=== PATIENT | female | born 1975 | race Caucasian/White ===

== ENCOUNTER 2023-10-26 12:25 | Emergency (ER) | payer OTHER, BC, SELFPAY ==
[2023-10-26 12:50] VITALS: BP 220/100; PULSE 93; RESP 20; TEMP 36.4; O2SAT 98; BMI 47.3
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
[2023-10-26] MEDS: ORPHENADRINE 60 MG/ 2 ML VIAL IM (13:47)
[2023-10-26] MEDS: HYDROCODONE/ACET 5-325 MG TABLET 1 TAB PO (13:47)
[2023-10-26 13:54] VITALS: BP 220/110
[2023-10-26 14:14] VITALS: BP 220/110
[2023-10-26] MEDS: LISINOPRIL 10 MG TABLET 20 MG PO (14:14)
[2023-10-26 14:43] VITALS: BP 184/94; PULSE 94; RESP 18
== END 2023-10-26 14:45 | disposition home or self-care (01) ==
PROVIDERS: Emergency Provider Emergency Medicine; PCP Student in an Organized Health Care Education/Training Program
DX: S13.9XXA Sprain of joints and ligaments of unspecified parts of neck, initial encounter (principal); M54.9 Dorsalgia, unspecified; I10 Essential (primary) hypertension; V47.6XXA Car passenger injured in collision with fixed or stationary object in traffic accident, initial encounter; Z79.899 Other long term (current) drug therapy
CPT/HCPCS: 70450; 72125; 72128; 72131; 96372; 99285; J2360

== ENCOUNTER 2025-01-02 18:08 | Emergency (ER) | payer BC, SELFPAY ==
--- OUTSIDE RECORDS SUMMARY | 2025-01-02 18:25 | XMS_ITS | CCD ---
Author Organization [facility] Care Team Providers Care Retail Wireless Sales Representative Name Role Phone Kevin Echeverria Unavailable Kings Lopez Unavailable MIGUEL ECHEVERRIA Primary Care Unavailable NATALY FISHER Attending Unavailable NATALY FISHER Admitting Unavailable KEVIN ECHEVERRIA Primary Care Physician Hai Victoria. Attending Unavailable EDUARDO ORTEGA Attending Unavailable EDUARDO ORTEGA Referring Unavailable EDUARDO ORTEGA Referring Unavailable DO Kevin Echeverria Primary Care Provider MD Tay Deshpande II Attending Provider [phone] Tay Deshpande II Attending Tay Murdock II Admitting Kevin Suarez Primary Care Unavailable Allergies Allergy Classification Reported Allergen(s) Allergy Type Date of Onset Reaction(s) Facility (20 sources) Penicillins Drug allergy seizure [facility] Other (1 source) Penicillins Drug allergy (disorder) 3 [facility] Repository (5 sources) Substance with penicillin structure and antibacterial mechanism of action (substance) Drug allergy seizure [facility] Other (2 sources) Penicillin; Translations: [penicillin] Drug Allergy Seizure [facility] (1 source) No Known Medication Allergies; Translations: [No Known Medication Allergies] Propensity to adverse reactions (disorder) [facility] Repository (1 source) Penicillins Drug allergy (disorder) 4 [facility] Repository Medications Current Medications Medication Drug Class(es) Dates Sig (Normalized) Sig (Original) [id number] 200 actuat albuterol 0.09 mg/actuat metered dose inhaler (20 sources) beta2-Adrenergic Agonist Start: 05-02-2024 End: 05-02-2024 take 1 puff(s) by inhalation every four hours Albuterol Sulfate (Ventolin Hfa) 90 mcg/actuation HFA aerosol inhaler Active 2 PUFF INHALATION Every 4 hours 8.5 30 May 02, 2024 11:49am Start: 11-03-2023 End: 05-02-2024 take 2 puff(s) by inhalation every four hours as needed Albuterol Sulfate (Ventolin Hfa) 90 mcg/actuation HFA aerosol inhaler Discontinued 2 PUFF INHALATION Every 4 hours November 03, 2023 1:00am May 02, 2024 11:49am Free[employer]Si puffs as needed Inhalation every 4 hrs; Note: Source Status: Taking; Refills: 5; Provider: Juwan Elaine take 2 puff(s) by in halation every four hours as needed Ventolin HFA 108 (90 Base) MCG/ACT 2 puffs as needed Inhalation every 4 hrs for 30 day(s) Active 120 actuat albuterol 0.1 mg/actuat / ipratropium bromide 0.02 mg/actuat inhalation spray (20 sources) Anticholinergic, beta2-Adrenergic Agonist Start: 11-03-2023 End: 05-02-2024 take 20-100 ug by inhalation every six hours Ipratropium-Albuterol (Combivent Respimat) 20-100 mcg/actuation mist Active 1 PUFF INHALATION Every 6 hours 4 May 02, 2024 11:48am Start: 08-24-2018 take 20-100 ug by in halation four times daily as needed Combivent Respimat 20-100 MCG/ACT 1 puff Inhalation Four times a day PRN for 30 day(s) Aug, Active take 20-100 ug by in halation every six hours as needed Combivent Respimat 20-100 MCG/ACT 1 puff as needed Inhalation every 6 hrs Active azithromycin 250 mg oral tablet (7 sources) Macrolide Antimicrobial Start: 06-22-2017 Zithro max Z-Nitin 250 MG 2 tablets on the first day, then 1 tablet daily for 4 days Orally Once a day for 5 day(s) Jun, Active diclofenac sodium 0.01 mg/mg topical gel (20 sources) Nonsteroidal Anti-inflammatory Drug Start: 07-21-2024 Diclofenac Sodium Active 2 GM TOPICAL as directed 10 20July 21, 2024 12:00am Start: 03-19-2022 Diclofenac Sod ium 1 % apply 1-2 grams to left elbow Externally Twice a day for 30 days Feb, Active Start: 08-24-2018 take 1 tablet by rishi th twice daily at mealtime as needed Voltaren 75 MG 1 tablet with food or milk Orally Twice a day/PRN for 30 day(s) Aug, Active [id number] 0.3 ml EPINEPHrine 1 mg/ml auto-injector (7 sources) alpha-Adrenergic Agonist, beta-Adrenergic Agonist, Catecholamine Start: 11-03-2023 Epinephrine Activ e 0.3 MG IM .prn for bee sting November 03, 2023 1:00am Start: 04-29-2023 EpiPen 2-Nitin 0 .3 MG/0.3ML as directed Injection at bee sting for 14 days Apr, Active escitalopram 10 mg oral tablet (20 sources) Serotonin Reuptake Inhibitor Start: 05-16-2024 take 1 tablet by mouth once daily Escitalopram Oxalate Active 0 .ROUTE .COMPLEX May 16, 2024 10:45am TAKE 1 TABLET BY MOUTH EVERY DAY Start: 05-02-2024 End: 05-16-2024 take 10 mg by mouth once daily Escitalopram Oxalate Di scontinued 10 MG PO Daily May 02, 2024 12:00am May 16, 2024 10:45am Start: 10-17-2021 End: 05-02-2024 take 5 mg by mouth once daily Escitalopram Oxalate Dis continued 5 MG PO Daily May 02, 2024 10:19am May 02, 2024 11:48am fluticasone propionate 0.05 mg/actuat metered dose nasal spray (15 sources) Corticosteroid Start: 10-17-2021 take 2 spray(s) nasal route once daily Fluticasone Propionate 50 MCG/ACT 2 spray in each nostril Nasally Once a day for 90 days Sep, Active methocarbamol 750 mg oral tablet (2 sources) Muscle Relaxant take 1 tablet by mouth every eight hours as needed for pain Methocarbamol 750 MG 1 tablet Orally every 8 hrs prn for pain Active naproxen 500 mg oral tablet (2 sources) Nonsteroidal Anti-inflammatory Drug take 1 tablet by mouth every twelve hours at mealtime as needed Naproxen 500 MG 1 tablet with food or milk as needed Orally every 12 hrs Active nitrofurantoin, macrocrystals 25 mg / nitrofurantoin, monohydrate 75 mg oral capsule (2 sources) Nitrofuran Antibacterial Start: 05-25-2024 take 1 capsule by mouth every twelve hours Nitrofurantoin Monohyd/M-Cryst (Macrobid) 100 mg capsule Active 100 MG PO Q12H 14 May 25, 2024 12:00am traMADol hydrochloride 50 mg oral tablet (1 source) Opioid Agonist Start: 02-26-2024 take 1-2 tablets by mouth every six hours as needed for pain traMADOL 50 mg Tab 1-2 tabs, Oral, q6hr, PRN for pain, # 12 tab(s), Refills(s) 0, Pharmacy: [facility]/pharmacy #[id number], 175.3, cm, 02/26/24 16:01:00 EDT, Height/Length Dosing, 163, kg, 02/26/24 16:01:00 EDT, Weight Dosing Start Date: 02/26/24 Status: Ordered Completed/Discontinued Medications Medication Drug Class(es) Dates Sig (Normalized) Sig (Original) Albuterol Sulfate (Ventolin Hfa) 90 mcg/actuation HFA aerosol inhaler (3 sources) Start: 11-03-2023 End: 05-02-2024 Albuterol Sulfate (Ventolin Hfa) 90 mcg/actuation HFA aerosol inhaler Discontinued 1 INH INHALATION Six times daily 6.7 30 November 03, 2023 1:00am May 02, 2024 10:05am ALPRAZolam 0.5 mg oral tablet (20 sources) Benzodiazepine Start: 12-04-2021 End: 05-02-2024 take 1 tablet by mouth three times daily as needed Alprazolam (Xanax) 0.5 mg tablet Discontinued 1 TAB PO Three times daily November 03, 2023 1:00am May 02, 2024 11:46am FreeTextSi tablet Orally TID PRN; Note: Source Status: Taking; Refills: 0; Provider: Juwan Elaine take 1 tablet by three times daily as needed Xanax 0.5 MG 1 tablet Orally TID PRN for 10 days Active hydroCHLOROthiazide 25 mg / lisinopril 20 mg oral tablet (20 sources) Thiazide Diuretic, Angiotensin Converting Enzyme Inhibitor Start: 11-03-2023 End: 05-02-2024 take 1 tablet by mouth once daily Lisinopril-Hydrochlorothiazide Discontinued 1 TAB PO Daily 90 90 November 03, 2023 3:54pm May 02, 2024 11:50am FreeTextSi tablet Orally Once a day; Note: Source Status: Taking; Refills: 1; Qty: 90 Tablet; Provider: Juwan Elaine montelukast 10 mg oral tablet (20 sources) Leukotriene Receptor Antagonist Start: 11-03-2023 End: 05-02-2024 take 1 tablet by mouth once daily Montelukast (Singulair) 10 mg tablet Discontinued 10 MG PO Daily May 02, 2024 11:49am May 02, 2024 11:50am predniSONE 20 mg oral tablet (5 sources) Start: 05-02-2024 End: 07-21-2024 take 60 mg by mouth once daily Prednisone Discontinued 60 MG PO daily 15 5 May 02, 2024 12:00am July 21, 2024 1:41pm Start: 07-07-2023 take 3 tablets by mo uth once daily at mealtime predniSONE 20 MG 3 tabs with food Orally Once a day for 5 days Jun, Active tiZANidine 4 mg oral tablet (5 sources) Central alpha-2 Adrenergic Agonist Start: 11-03-2023 End: 05-02-2024 take 4 mg by mouth every eight hours Tizanidine Discontinued 4 MG PO Every 8 hours November 03, 2023 1:00am May 02, 2024 10:07am Start: 11-02-2023 take 1 tablet by rishi every eight hours tiZANidine HCl 4 MG 1 tablet as needed Orally Three times a day for 7 days Oct, Active triamcinolone acetonide 40 mg/ml injectable suspension (12 sources) Corticosteroid Start: 03-19-2022 Kenalog-40 Feb, 40 mg Problems Active Problems Problem Classification Problem Date Documented Date Episodic/Chronic Allergic reactions (4 sources) Allergy to bee venom; Translations: [Bee allergy status] Episodic Anxiety disorders (20 sources) Anxiety; Translations: [Anxiety disorder, unspecified] Onset: 10-17-2021 Resolved: 01-08-2022 Chronic Asthma (20 sources) Mild intermittent asthma; Translations: [Mild intermittent asthma, uncomplicated] Onset: 02-03-2022 Resolved: 02-03-2022 Chronic Esophageal disorders (20 sources) Gastroesophageal reflux disease without esophagitis; Translations: [Gastro-esophageal reflux disease without esophagitis] 05-02-2024 Chronic Essential hypertension (20 sources) Malignant hypertension; Translations: [Essential (primary) hypertension] Onset: 08-19-2021 Resolved: 02-19-2022 Chronic Miscellaneous mental health disorders (20 sources) Primary insomnia; Translations: [Primary insomnia] 05-02-2024 Chronic Osteoarthritis (2 sources) Osteoarthritis of left knee joint; Translations: [Unilateral primary osteoarthritis, left knee] 07-21-2024 Chronic Other circulatory disease (1 source) Elevated blood-pressure reading without diagnosis of hypertension; Translations: [Elevated blood-pressure reading, without diagnosis of hypertension] Onset: 02-26-2024 Episodic Other non-traumatic joint disorders (4 sources) Pain in left knee; Translations: [Pain of left knee joint] Onset: 02-26-2024 Episodic Other nutritional; endocrine; and metabolic disorders (20 sources) Severe obesity; Translations: [Other obesity due to excess calories] Chronic Other nutritional; endocrine; and metabolic disorders (1 source) Body mass index 40+ - severely obese; Translations: [Body mass index (BMI) 50.0-59.9, adult] 07-21-2024 Chronic Other nutritional; endocrine; and metabolic disorders (1 source) Body mass index (BMI) 50.0-59.9, adult; Translations: [Body Mass Index 50.0-59.9, adult] 07-21-2024 Chronic Other upper respiratory infections (3 sources) Acute upper respiratory infection, unspecified Onset: 09-24-2021 Resolved: 03-31-2022 Episodic Past or Other Problems Problem Classification Problem Date Documented Da te Episodic/Chronic Other connective tissue disease (2 sources) Lateral epicondylitis, left elbow Onset: 02-19-2022 Resolved: 03-19-2022 Episodic Other non-traumatic joint disorders (1 source) Pain in left elbow Onset: 03-19-2022 Resolved: 03-19-2022 Episodic Otitis media and related conditions (3 sources) Other specified disorders of Eustachian tube, bilateral Onset: 10-17-2021 Resolved: 01-01-2022 Episodic Unclassified (1 source) Acute bilateral low back pain without sciatica M54.50 Results Test Name Value Interpretation Reference Range Facility XR knee LT 4V*on 07-21-2024 XR knee LT 4V* [facility] [address] [place] [address] XRay Report Signed Patient: Zayra Escamilla MR#: [id number] : 1975 Acct:[id number] Age/Sex: 49 / F ADM Date: 07/21/24 Loc: [facility] Room: Type: [facility] Attending Dr: Tay Deshpande II, MD Copies to: Tay Deshpande MD Ordering Provider: Tay Deshpande MD Date of Service: 07/21/24 XR/XR knee LT 4V*: M25.562 - Pain in left knee ([id number]) XR/XR pelvis 1-2V: M25.562 - Pain in left knee Single view of the pelvis plain film HISTORY: Chronic LEFT knee pain COMPARISON: None ACUTE FINDINGS: None BONY ALIGNMENT: Adequate SOFT TISSUES: Unremarkable DEGENERATIVE CHANGE:Adequate hip joints. Lower lumbar degeneration and scoliosis INTRAPELVIC STRUCTURES: Unremarkable POSTSURGICAL CHANGES:None XR/XR pelvis 1-2V IMPRESSION:Adequate hips. Lumbar degeneration with scoliosis) 4 views LEFT knee No patellar subluxation. Moderate medial joint space narrowing and patellofemoral spurring. No fracture or joint effusion. Unremarkable soft tissues. IMPRESSION: Moderate medial degeneration Impression dictated by: Nathan Mesa M.D.07/21/2024 5:04 PM Dictation Location: [place] [address] Transcribed By: [facility] 07/21/241703 Dictated By: Nathan Mesa DO 07/21/241702 Signed By: 07/21/241703 Normal [facility] ED Note-Physicianon 02-29-20 ED Note-Physician Basic Information Time Seen: Divine Neri PA-C 02/26/2024 16:21 Chief Complaint patient c/o left knee pain x 2 weeks, made worse yesterday when felt a pop while going up steps. ambulatory on arrival History of Present Illness Patient is 48-year-old female that denies any significant prior medical history the presents to the ED with for evaluation of left knee pain x 2 weeks. Patient tried over the past 2 weeks it has been painful when she moves or bends it. Denies trauma or injury. She says she has heard some cracking but yesterday was the first time she heard a pop. She says she was walking up the stairs yesterday and heard and felt a pop in her left knee and since then has not been able to bend or extend her knee and had to crawl up the stairs. She says she has swelling down her left calf into her left ankle. Rates pain 8/10. Took Tylenol this morning with no relief in symptoms. She denies any numbness, tingling, extremity weakness. Denies ecchymosis, swelling, fever, chills. Denies history of bleeding or clotting disorder. Review of Systems A 10 point review of systems is negative except as noted above. Medical and Surgical History: Reviewed and noted Social history: Lives at home Substance use: Denies Physical Exam Vitals & Measurements T: 36.6 ?C(Oral) HR: 89(Peripheral) RR: 20 BP: 177/108 SpO2: 97% HT: 175.26 cm WT: 163 kg BMI: 53.07 LLE: Tenderness with palpation of entire knee. Will not allow me to fully assess passive ROM secondary to pain. No warmth, erythema, ecchymosis. Subtle lateral edema. 2+ DP pulse. Passive dorsiflexion, plantarflexion and inversion of ankle all because patient to jump and pull away. She would not attempt ambulation. Was noted that she was ambulatory on arrival with a limp. Appearance: Elevated BMI. Nontoxic-appearing, alert and awake. Speaking in complete sentences. Calm. Cooperative. Vital signs reviewed, hypertensive otherwise WNL Skin: Warm, dry, intact. Eyes: PERRL. Vision grossly intact. Respiratory: LCTA b/l with normal bilateral excursion. No wheezes, rhonchi, rales. Cardiovascular: Hypertensive. RRR, no murmurs. 2+ symmetrical radial and dorsalis pedis pulses. Normal cap refill. No LE edema. Neuro: Alert and awake, speech Clear, cranial nerves grossly intact. No focal neurological deficit observed. Normal sensation to light touch in all 4 extremities. Extremities: See LLE. Patient spontaneously moves all 4 extremities. Medical Decision Making Limitations to history: None Nursing Notes: Reviewed and utilized the nursing notes. Previous records reviewed: Reviewed OARRS. Score 0. No concerning findings. MDM: Patient is 48-year-old female presents to the ED for evaluation of left knee pain and hearing a pop in her knee yesterday with new inability to go up stairs. On exam she has no warmth, erythema, ecchymosis to suggest septic joint workup is necessary. She has minimal lateral edema of the left knee. She would not allow me to fully flex or extend knee to assess range of motion and refused to ambulate due to pain. X-ray was ordered while patient was in waiting room. I personally viewed x-ray and see no evidence of fracture nor dislocation. Considering she heard a pop and is having such severe pain we will give patient p.o. Percocet and ibuprofen. Will order knee immobilizer and crutches and patient will need to follow-up with Ortho to rule out ligamentous or tendinous injury. Send home prescription for tramadol. Advised patient that she should continue Tylenol. Recommended NSAIDs however she should take them sparingly due to her elevated blood pressure. Return to ER for any new or worsening symptoms. Patient agreeable. Appropriate for: Outpatient mgmt Assessment/Plan 1. Knee pain, left (M25.562: Pain in left knee) Ordered: tramadol, 1-2 tabs, Oral, q6hr, PRN for pain, # 12 tab(s), Refills(s) 0, Pharmacy: [facility]/pharmacy #[id number], 175.3, cm, 02/26/24 16:01:00 EDT, Height/Length Dosing, 163, kg, 02/26/24 16:01:00 EDT, Weight Dosing 2. Elevated BP without diagnosis of hypertension (R03.0: Elevated blood-pressure reading, without diagnosis of hypertension) Orders: acetaminophen-oxycod one, 1 tab(s), Tab, Oral, Once, Stop date 02/26/24 16:28:00 EDT, STAT, Start date 02/26/24 16:28:00 EDT ibuprofen, 600 mg = 1 tab(s), Tab, Oral, Once, Stop date 02/26/24 16:28:00 EDT, STAT, Start date 02/26/24 16:28:00 EDT, 02/26/24 16:28:00 EDT Crutches Immobize Extremity Medications Administered Given Percocet 5 mg-325 mg oral tablet, 1 tab(s), Oral Disposition Plan Patient Discharge Condition Stable Discharge Disposition Home Discharge Prescription List Prescriptions traMADOL 50 mg Tab, 1-2 tabs, Oral, q6hr, PRN Follow-up With When Contact Information Jeremy Benitez DO, ORT In 3 days 02/29/2024 EDT [address] [place] [address]- Additional Instructions: Additional Instructions: Call the office of your primary care doctor to arrange for foll (more content not included)... [facility] Comment on above: Result Comment: Elec tronically Signed By: Divine Neri PA-C\.br\Date and Time Signed: 02/29/24 13:52 EDT\.br\Electronically Co-Signed By: Hai Victoria DO\.br\Date and Time Co-Signed: 03/01/24 13:26 EDT Consent for Treatmenton Consent for Treatment [id number] #1.00TIFF [facility] Discharge Instructionson Discharge Instructions [id number] #1.00TIFF [facility] ED Clinical Summaryon 2023 ED Clinical Summary [facility] [address] [place], [place] [address] ED Clinical Summary Person Information Name: ZAYRA ESCAMILLA/New_Erick Age: 48 Years : 1975 Sex: Female Language: Singaporean PCP: KEVIN ECHEVERRIA DO Marital Status: Visit Id: Visit Reason: Knee pain-swelling; LT KNEE PAIN Speciality: Acuity: 4 Enc Type: Emergency Med Service: Emergency Arrival: 02/26/2024 15:52:49 Discharge: 02/26/2024 17:25:31 LOS: 000 01:33 Checkin: 02/26/2024 15:52:49 Checkout: 02/26/2024 17:25:31 Dispo Type: Home (Routine DC) EVENTS: Event Name Event Status Request Date/Time Start Date/Time Complete Date/Time Arrive Complete 02/26/2024 15:52:49 02/26/2024 15:52:49 02/26/2024 15:52:49 Document Home Meds Request 02/26/2024 15:52:49 Triage Complete 02/26/2024 15:52:49 02/26/2024 16:01:30 02/26/2024 16:01:30 X-Ray Complete 02/26/2024 16:02:46 02/26/2024 16:05:16 02/26/2024 16:16:07 Wet Read Request 02/26/2024 16:16:07 Bed Assign Complete 02/26/2024 16:20:29 02/26/2024 16:20:29 02/26/2024 16:20:29 Dr Exam Complete 02/26/2024 16:20:29 02/26/2024 16:21:18 02/26/2024 16:21:18 RN Exam Complete 02/26/2024 16:20:29 02/26/2024 16:24:07 02/26/2024 16:24:07 Registration Complete 02/26/2024 16:21:18 02/26/2024 16:32:42 02/26/2024 16:32:42 Dr Exam Complete 02/26/2024 16:22:00 02/26/2024 16:22:00 02/26/2024 16:22:00 Meds Admin Request 02/26/2024 16:28:39 Reg Complete Request 02/26/2024 16:32:42 Reg Bed Request Complete 02/26/2024 16:32:42 02/26/2024 16:32:42 02/26/2024 16:32:42 Patient Care Request 02/26/2024 16:50:54 Discharge Complete 02/26/2024 16:55:29 02/26/2024 17:25:39 02/26/2024 17:25:39 Transfer Complete 02/26/2024 17:25:39 02/26/2024 17:25:39 02/26/2024 17:25:39 ADDRESS: [address] [place] [id number] PHYS DOC NOTES: MEDICAL INFORMATION: Prescriptions Given: New Medications [id number], [address], [place] [id number], [phone] tramadol (traMADOL 50 mg Tab) 1-2 tabs By Mouth every 6 hours as needed for pain. Refills: 0. PATIENT EDUCATION INFORMATION: Instructions: Acute Knee Pain, Adult, [id number] Follow up: With: Address: When: Emmanuel DO, HEIDI Thomas [address] [place] [id number] In 3 days 02/29/2024 DIAGNOSIS: 1:Knee pain, left; 2:Elevated BP without diagnosis of hypertension Normal [facility] ED Patient Education Noteon 02-26-2024 ED Patient Education Note Orthopedics Acute Knee Pain, Adult Many things can cause knee pain. Sometimes, knee pain is sudden (acute) and may be caused by damage, swelling, or irritation of the muscles and tissues that support your knee. The pain often goes away on its own with time and rest. If the pain does not go away, tests may be done to find out what is causing the pain. Follow these instructions at home: If you have a knee sleeve or brace: ? Wear the knee sleeve or brace as told by your doctor. Take it off only as told by your doctor. ? Loosen it if your toes: ? Tingle. ? Become numb. ? Turn cold and blue. ? Keep it clean. ? If the knee sleeve or brace is not waterproof: ? Do not let it get wet. ? Cover it with a watertight covering when you take a bath or shower. Activity ? Rest your knee. ? Do not do things that cause pain or make pain worse. ? Avoid activities where both feet leave the ground at the same time (high-impact activities). Examples are running, jumping rope, and doing jumping jacks. ? Work with a physical therapist to make a safe exercise program, as told by your doctor. Managing pain, stiffness, and swelling ? If told, put ice on the knee. To do this: ? If you have a removable knee sleeve or brace, take it off as told by your doctor. ? Put ice in a plastic bag. ? Place a towel between your skin and the bag. ? Leave the ice on for 20 minutes, 2?3 times a day. ? Take off the ice if your skin turns bright red. This is very important. If you cannot feel pain, heat, or cold, you have a greater risk of damage to the area. ? If told, use an elastic bandage to put pressure (compression) on your injured knee. ? Raise your knee above the level of your heart while you are sitting or lying down. ? Sleep with a pillow under your knee. General instructions ? Take ogsx-zih-liewtyg and prescription medicines only as told by your doctor. ? Do not smoke or use any products that contain nicotine or tobacco. If you need help quitting, ask your doctor. ? If you are overweight, work with your doctor and a food expert (dietitian) to set goals to lose weight. Being overweight can make your knee hurt more. ? Watch for any changes in your symptoms. ? Keep all follow-up visits. Contact a doctor if: ? The knee pain does not stop. ? The knee pain changes or gets worse. ? You have a fever along with knee pain. ? Your knee is red or feels warm when you touch it. ? Your knee gives out or locks up. Get help right away if: ? Your knee swells, and the swelling gets worse. ? You cannot move your knee. ? You have very bad knee pain that does not get better with pain medicine. Summary ? Many things can cause knee pain. The pain often goes away on its own with time and rest. ? Your doctor may do tests to find out the cause of the pain. ? Watch for any changes in your symptoms. Relieve your pain with rest, medicines, light activity, and use of ice. ? Get help right away if you cannot move your knee or your knee pain is very bad. This information is not intended to replace advice given to you by your health care provider. Make sure you discuss any questions you have with your health care provider. Document Revised: 02/20/2021 Document Reviewed: 02/20/2021 Elsevier Patient Education ? 2022 [employer] Normal [facility] ED Patient Summaryon 024 ED Patient Summary [facility] [address] [place], [place] [address] Patient Discharge Instructions Person Information Name: ZAYRA ESCAMILLA Age: 48 Years Arrival Date: 02/26/2024 15:52:49 Discharge Diagnosis: 1:Knee pain, left; 2:Elevated BP without diagnosis of hypertension Primary Care Physician: KEVIN ECHEVERRIA DO Provider Information Primary Provider: Hai Victoria DO Advanced Branch Officer:Divine Neri PA-C The exam and treatment you received in the Emergency Department were for an urgent problem and are not intended as complete care. It is important that you follow up with a doctor, nurse practitioner, or physician?s assistant program manager for ongoing care. If your symptoms become worse or you do not improve as expected and you are unable to reach your usual health care provider, you should return to the Emergency Department. We are available 24 hours a day. ZAYRA ESCAMILLA has been given the following list of patient education materials, prescriptions and follow-up instructions: Follow-up Instructions: With: Address: When: Jeremy Benitez DO, ORT [address] [place] [address] In 3 days 02/29/2024 In the event that this physician does not participate in your insurance network, please consult with your insurance company to find a nearby participating provider. Patient Education Materials: Acute Knee Pain, Adult, Dilj-dr-Aahq A MESSAGE TO ALL PATIENTS REGARDING OPIOIDS PRESCRIPTION OPIOIDS: WHAT YOU NEED TO KNOW Prescription opioids can be used to help relieve cwbpzfpy-ds-wedphh pain and are often prescribed following a surgery or injury, or for certain health conditions. These medications can be an important part of the treatment but also come with serious risks. It is important to work with your healthcare provider to make sure you are getting the safest, most effective care. WHAT ARE THE RISKS AND SIDE EFFECTS OF OPIOID USE? Prescription opioids carry serious risks of addiction and overdose, especially with prolonged use. An opioid overdose, often marked by slowed breathing, can cause sudden . The use of prescription opioids can have a number of side effects as well, even when taken as directed: ? Tolerance?meaning you might need to take more of the medication for the same pain relief ? Physical dependence?meaning you have symptoms of withdrawal when a medication is stopped ? Increased sensitivity to pain ? Constipation ? Nausea, vomiting, and dry mouth ? Sleepiness and dizziness ? Confusion ? Depression ? Low levels of testosterone that can result in lower sex drive, energy, and strength ? Itching and sweating RISKS ARE GREATER WITH: ? History of drug misuse, substance use disorder, or overdose ? Mental health conditions (such as depression or anxiety) ? Sleep apnea ? Older age (65 years and older) ? Avoid alcohol while taking prescription opioids. Also, unless specifically advised by your health care provider, medications to avoid include: ? Benzodiazepines (such as Xanax or Valium) ? Muscle relaxants (such as Soma or Flexeril) ? Hypnotics (such as Ambien or Lunesta) ? Other prescription opioids KNOW YOUR OPTIONS Talk to your health care provider about ways to manage your pain that don?t involve prescription opioids. Some of these options may actually work better and have fewer risks and side effects. Options may include: ? Pain relievers such as acetaminophen, ibuprofen, and naproxen ? Some medication that are also used for depression or seizures ? Physical therapy and exercise ? Cognitive behavioral therapy, a psychological, goal-directed approach, in which patients learn how to modify physical, behavioral, and emotional triggers of pain and stress. IF YOU ARE PRESCRIBED OPIOIDS FOR PAIN: ? Never take opioids in greater amounts or more often than prescribed. ? Follow up with your primary health care provider. o Work together to create a plan on how to manage your pain. o Talk about ways to help manage your pain that don?t involve prescription opioids. o Talk about any and all concerns and side effects. ? Help prevent misuse and abuse o Never sell or share prescription opioids. o Never use another person?s prescription opioids. ? Store prescription opioids in a secure place and out of reach of others (this may include visitors, children, friends, and family). ? Safely dispose of unused prescription opioids: Find your community drug take-back program or your pharmacy mail-back program, or flush them down the toilet, following guidance from the Food and Drug Administration (www.fda.gov/Drugs/R Brent). ? Visit www.cdc.gov/drugover dose to learn about the risks of opioids abuse and overdose. ? If you believe you may be struggling with addiction, tell your health critical care educator and ask for guidance or call [facility] Na (more content not included)... [facility] Prescriptions/Work Noteson 0 02-26-2024 Prescriptions/Work Notes [id number] #[id number] [facility] XR Knee Complete 4+ Views Le fton 02-26-2024 XR Knee Complete 4+ Views Left Exam Date/Time: 02/26/2024 16:16 EDT Reason for Exam: Pain, Non Traumatic Report IMPRESSION: NO ACUTE OSSEOUS ABNORMALITY. EXAM: XR Knee Complete 4+ Views Left HISTORY: Knee pain TECHNIQUE: AP, lateral and oblique views of the knee obtained. COMPARISON: None available FINDINGS: No acute fracture or dislocation. Mild degenerative changes of the knee. No knee joint effusion. Soft tissues are within normal limits. Ordering Provider: Hai Victoria FINAL REPORT Dictated: 02/26/2024 4:27 pm Tay Rogers DO Signed (Electronic Signature): 02/26/2024 4:27 pm Signed by: Tay Rogers DO Transcribed by: KARLA Technologist: PATRICIA Technical Comments Radiation Dose: Ka,r in mGy = na DAP = na [facility] XR elbow LT 2Von 03-19-2022 XR elbow LT 2V [facility] [employer] Other XR elbow LT 2V [facility] [employer] Other XR elbow LT 2V [address] [place] [address] [employer] Other XR elbow [place] 2[place] [address] No rt [employer] Other XR elbow LT 2V XRay Report [employer] Other XR elbow LT 2V Signed [facility] Other XR elbow LT 2V Patient: Zayra Escamilla MR#: [id number] [employer] Other XR elbow LT 2V [address] [facility] Other XR elbow LT 2V : 1975 Acct:[id number] [employer] Other XR elbow LT 2V Age/Sex: 46 / F ADM Date: 03/19/22 [employer] Other XR elbow LT 2V Loc: [facility] Room: Type: [facility] [employer] Other XR elbow LT 2V Attending Dr: Kings Lopez DO [employer] Other XR elbow LT 2V Copies to: Kings Lopez DO [employer] Other XR elbow LT 2V Ordering Provider: Kings Lopez DO [employer] Other XR elbow LT 2V Date of Service: 03/19/22 [employer] Other XR elbow LT 2V XR/XR elbow LT 2V: Left elbow pain [employer] Other XR elbow LT 2V LEFT ELBOW - 2 VIEWS [employer] Other XR elbow LT 2V CLINICAL HISTORY: Chronic worsening left elbow pain, greatest with extension. No specific injury. [employer] Other XR elbow LT 2V COMPARISON: None [facility] [email or web address] Other XR elbow LT 2V AP and lateral views were obtained. There is no evidence of fracture or dislocation. There are no [employer] Other XR elbow LT 2V significant soft tissue abnormalities. There is no elbow effusion. [employer] Other XR elbow LT 2V XR/XR elbow LT 2V [employer] Other XR elbow LT 2V IMPRESSION: [employer] Other XR elbow LT 2V NO ACUTE BONY FINDINGS. [employer] Other XR elbow LT 2V Impression dictated by: Nan lFores M.D.03/19/2022 11:23 AM [employer] Other XR elbow LT 2V Dictation Location: [place] [address] [employer] Other XR elbow LT 2V Transcribed By: NATALIE 03/19/22 [facility] [employer] Other XR elbow LT 2V Dictated By: Nan Flores MD 03/19/22 [facility] [employer] Other XR elbow LT 2V Signed By: [employer] Other XR elbow LT 2V 03/19/22 [facility] Other Vital Signs Date Time Vital Sign Value Performing Clinician Facility 07-20-2024 14:40-0400 Body height 167.64 cm DO Kevin Juwan Work Phone: [facility] 07-20-2024 14:40-0400 Body mass index (BMI) [Ratio] 57.7 kg/m2 DO Kevin Juwan Work Phone: [facility] 07-20-2024 14:40-0400 Body weight 162.38 kg DO Kevin Juwan Work Phone: [facility] 05-02-2024 10:120400 Body height 167.64 cm [facility] 05-02-2024 10:12-0400 Body mass index (BMI) [Ratio] 58.1 kg/m2 [facility] 05-02-2024 10:12-0400 Body temperature 97.8 [degF] [facility] 05-02-2024 10:12-0400 Body weight 163.29 kg [facility] 05-02-2024 10:12-0400 Diastolic blood pressure 78 mm[Hg] [facility] 05-02-2024 10:12-0400 Heart rate 87 /min [facility] 05-02-2024 10:12-0400 Respiratory rate 18 /min [facility] 05-02-2024 10:12-0400 SaO2% (BldA) [Mass fraction] 99 % [facility] 05-02-2024 10:12-0400 Systolic blood pressure 138 mm[Hg] [facility] 02-26-2024 15:56-0400 Body temperature 97.88 [degF] Hai Victoria [facility] 02-26-2024 15:56-0400 Diastolic blood pressure 108 mm[Hg] Hai Victoria [facility] 02-26-2024 15:56-0400 Heart rate 89 /min Haiailyn Victoria [facility] 02-26-2024 15:56-0400 Respiratory rate 20 /min Hai Victoria [facility] 02-26-2024 15:56-0400 SaO2% (BldA) [Mass fraction] 97 % Hai Julien [facility] 02-26-2024 15:56-0400 Systolic blood pressure 177 mm[Hg] Hai Julien [facility] 11-02-2023 16:30-0500 Body height 167.64 cm [employer] Other [facility] [employer] Other 11-02-2023 16:30-0500 Body mass index (BMI) [Ratio] 57.62 kg/m2 Kevin Juwan Other [employer] [facility] [employer] Other 11-02-2023 16:30-0500 Body temperature 97.9 [degF] Kevin Juwan Other [employer] [facility] [employer] Other 11-02-2023 16:30-0500 Body weight 161.94 kg Kevin Juwan Other [employer] Other 11-02-2023 16:30-0500 Diastolic blood pressure 100 mm[Hg] Kevin Juwan Other [employer] Other 11-02-2023 16:30-0500 Respiratory rate 20 /min Kevin Juwan Other [employer] Other 11-02-2023 16:30-0500 SaO2% (BldA) [Mass fraction] 97 % Kevin Juwan Other [employer] Other 11-02-2023 16:30-0500 Systolic blood pressure 150 mm[Hg] Kevin Juwan Other [employer] Other 07-07-2023 09:45-0400 Body height 167.64 cm Kevin Juwan Other [employer] Other 07-07-2023 09:45-0400 Body mass index (BMI) [Ratio] 57.29 kg/m2 Kevin Juwan Other [employer] Other 07-07-2023 09:45-0400 Body temperature 98.7 [degF] Kevin Juwan Other [employer] Other 07-07-2023 09:45-0400 Body weight 161.03 kg Kevin Juwan Other [employer] Other 07-07-2023 09:45-0400 Diastolic blood pressure 118 mm[Hg] Kevin Juwan Other [employer] Other 07-07-2023 09:45-0400 Respiratory rate 20 /min Kevin Juwan Other [employer] Other 07-07-2023 09:45-0400 SaO2% (BldA) [Mass fraction] 98 % Kevin Juwan Other [employer] Other 07-07-2023 09:45-0400 Systolic blood pressure 202 mm[Hg] Kevin Juwan Other [employer] Other 03-19-2022 11:30-0400 Body height 167.64 cm Kings Jessica Other [employer] Other 03-19-2022 11:30-0400 Body mass index (BMI) [Ratio] 57.62 kg/m2 Kings Jessica Other [employer] Other 03-19-2022 11:30-0400 Body weight 161.94 kg Kings Lopez Other [employer] Other 02-19-2022 17:45-0400 Body height 167.64 cm Kevin Juwan Other [employer] Other 02-19-2022 17:45-0400 Body temperature 96.9 [degF] Kevin Juwan Other [employer] Other 02-19-2022 17:45-0400 Diastolic blood pressure 84 mm[Hg] Kevin Juwan Other [employer] Other 02-19-2022 17:45-0400 Respiratory rate 20 /min Kevin Juwan Other [employer] Other 02-19-2022 17:45-0400 SaO2% (BldA) [Mass fraction] 97 % Kevin Juwan Other [employer] Other 02-19-2022 17:45-0400 Systolic blood pressure 122 mm[Hg] Kevin Juwan Other [employer] Other 10-17-2021 16:45-0500 Body height 167.64 cm Kevin Juwan Other [employer] Other 10-17-2021 16:45-0500 Body mass index (BMI) [Ratio] 57.62 kg/m2 Kevin Juwan Other [employer] Other 10-17-2021 16:45-0500 Body temperature 97.4 [degF] Kevin Juwan Other [employer] Other 10-17-2021 16:45-0500 Body weight 161.94 kg Kevin Juwan Other [employer] Other 10-17-2021 16:45-0500 Diastolic blood pressure 82 mm[Hg] Kevin Juwan Other [employer] Other 10-17-2021 16:45-0500 Respiratory rate 20 /min Kevin Juwan Other [employer] Other 10-17-2021 16:45-0500 SaO2% (BldA) [Mass fraction] 97 % Kevin Juwan Other [employer] Other 10-17-2021 16:45-0500 Systolic blood pressure 132 mm[Hg] Kevin Juwan Other [employer] Other 08-19-2021 17:00-0500 Body height 167.64 cm Kevin Juwan Other [employer] Other 08-19-2021 17:00-0500 Body mass index (BMI) [Ratio] 56.32 kg/m2 Kevin Juwan Other [employer] Other 08-19-2021 17:00-0500 Body temperature 98.6 [degF] Kevin Juwan Other [employer] Other 08-19-2021 17:00-0500 Body weight 158.31 kg Kevin Juwan Other [employer] Other 08-19-2021 17:00-0500 Diastolic blood pressure 88 mm[Hg] Kevin Juwan Other [employer] Other 08-19-2021 17:00-0500 Respiratory rate 20 /min Kevin Juwan Other [employer] Other 08-19-2021 17:00-0500 SaO2% (BldA) [Mass fraction] 98 % Kevin Juwan Other [employer] Other 08-19-2021 17:00-0500 Systolic blood pressure 134 mm[Hg] Kevin Juwan Other [employer] Other Encounters Encounter Date Encounter Type Care Provider Facility Start: 07-21-2024 End: 07-21-2024 ambulatory DO Kevin MZeeshan BrandJuwan Work Phone: [facility] Work Phone: Start: 07-21-2024 End: 07-21-2024 Patient encounter procedure DO Kevin Juwan Work Phone: [facility] Work Phone: Start: 05-02-2024 End: 05-02-2024 ambulatory [facility] Work Phone: Start: 05-02-2024 End: 05-02-2024 Patient encounter procedure [facility] Work Phone: Start: 04-11-2024 End: 04-11-2024 ambulatory EDUARDO Umair ORTEGA Not Available Start: 02-26-2024 End: 02-26-2024 Emergency department patient visit Hai Victoria [facility] Start: 11-02-2023 End: 11-02-2023 ambulatory Kevin Juwan Other [employer] Other Start: 11-02-2023 Office outpatient vi sit 25 minutes Kevin Juwan [facility] Start: 11-02-2023 Telephone encounter Kevin Juwan [facility] Start: 07-10-2023 End: 07-10-2023 ambulatory Kevin Juwan Other [employer] Other Start: 07-10-2023 Telephone encounter Kevin Juwan [facility] Start: 07-07-2023 End: 07-07-2023 ambulatory Kevin Juwan Other [employer] Other Start: 07-07-2023 Office outpatient vi sit 15 minutes Kevin Juwan [facility] Start: 10-10-2022 End: 10-10-2022 ambulatory Kevin Juwan Other [employer] Other Start: 10-10-2022 Telephone encounter Kevin Juwan [facility] [place] Start: 07-14-2022 ambulatory MIGUEL JUWAN Facility :[facility] Start: 06-10-2022 End: 06-10-2022 ambulatory Kevin Juwan Other [employer] Other Start: 06-10-2022 Telephone encounter Kevni Juwan [facility] [place] Start: 04-01-2022 End: 04-01-2022 ambulatory Kings Lopez Other [employer] Other Start: 04-01-2022 Telephone encounter Kings Lopez [facility] [employer] Start: 03-31-2022 End: 03-31-2022 ambulatory Kevin Juwan Other [employer] Other Start: 03-31-2022 Telephone encounter Kevin Juwan [facility] Start: 03-25-2022 End: 03-25-2022 ambulatory Kevin Juwan Other [employer] Other Start: 03-25-2022 Telephone encounter Kevin Juwan [facility] Start: 03-19-2022 End: 03-19-2022 ambulatory Kevin Juwan Other [employer] Other Start: 03-19-2022 Office outpatient ne w 30 minutes Kings Lopez [facility] Start: 03-19-2022 Telephone encounter Kevin Juwan [facility] Start: 02-27-2022 End: 02-27-2022 ambulatory Kevin Juwan Other [employer] Other Start: 02-27-2022 Telephone encounter Kevin Juwan [facility] Start: 02-19-2022 End: 02-19-2022 ambulatory Kevin Juwan Other [employer] Other Start: 02-19-2022 Office outpatient vi sit 15 minutes Kevin Juwan [facility] Start: 02-03-2022 End: 02-03-2022 ambulatory Kevin Juwan Other [employer] Other Start: 02-03-2022 Telephone encounter Kevin Juwan [facility] Start: 01-08-2022 End: 01-08-2022 ambulatory Kevin Juwan Other [employer] Other Start: 01-08-2022 Telephone encounter Kevin Juwan [facility] Start: 01-01-2022 End: 01-01-2022 ambulatory Kevin Juwan Other [employer] Other Start: 01-01-2022 Telephone encounter Kevin Juwan [facility] Start: 12-16-2021 End: 12-16-2021 ambulatory Kevin Juwan Other [employer] Other Start: 12-16-2021 Telephone encounter Kevin Juwan [facility] Start: 12-03-2021 End: 12-03-2021 ambulatory Kevin Juwan Other [employer] Other Start: 12-03-2021 Telephone encounter Kevin Juwan [facility] [place] Start: 10-17-2021 End: 10-17-2021 ambulatory Kevin Juwan Other [employer] Other Start: 10-17-2021 Office outpatient vi sit 15 minutes Kevin Juwan [facility] Start: 10-14-2021 End: 10-14-2021 ambulatory Kevin Juwan Other [employer] Other Start: 10-14-2021 Telephone encounter Kevin Juwan [facility] Start: 09-24-2021 End: 09-24-2021 ambulatory Kevin Juwan Other [employer] Other Start: 09-24-2021 Telephone encounter Kevin Juwan [facility] Start: 09-03-2021 End: 09-03-2021 ambulatory Kevin Juwan Other [employer] Other Start: 09-03-2021 Telephone encounter Kevin Juwan [facility] [place] Start: 08-19-2021 End: 08-19-2021 ambulatory Kevin Juwan Other [employer] Other Start: 08-19-2021 Office outpatient vi sit 15 minutes Kevin Juwan [facility] Procedures Date Procedure Procedure Detail Performing Clinician Start: 07-21-2024 Plain radiography of pelvis DO Kevin Juwan Work Phone: Start: 07-21-2024 X-ray of left knee, four views DO Kevin Juwan Work Phone: Plan of Treatment Date Care Activity Detail Author Start: 07-21-2024 Patient referral [facility] Work Phone: Start: 07-21-2024 Plain radiography of pelvis XR pelvi s 1-2V [facility] Start: 07-21-2024 X-ray of left knee, four views XR knee LT 4V* [facility] Start: 07-21-2024 XR Knee - left 4 Views [facility] Start: 07-21-2024 XR Pelvis 1 or 2 Views [facility] Patient referral [facility] Work Phone: Immunizations Immunization Date Immunization Notes Care Provider Fa daya 02-10-2021 COVID-19 Vaccine Pfizer - Documentation Purposes Only Kevin Juwan Other [facility] NEGATED: Highlighted row has not occurred!12-08-2019 influenza, injectable, quadrivalent, contains preservative Patient Objection Kevin Juwan Other [employer] Other NEGATED: Highlighted row has not occurred!10-21-2018 influenza, injectable, quadrivalent, contains preservative Patient Objection Kevin Juwan Other [employer] Other NEGATED: Highlighted row has not occurred!08-24-2018 influenza, injectable, quadrivalent, contains preservative Patient Objection Kevin Juwan Other [employer] Other NEGATED: Highlighted row has not occurred!09-03-2017 influenza, injectable, quadrivalent, contains preservative Patient Objection Kevin Juwan Other [employer] Other Payers Date Payer Category Payer Self-pay [id number] 2024 Unknown 1975 Unknown [id number] 1975 Unknown [id number] 1975 Unknown [id number] 1975 Unknown [id number] 1960 [facility] [id number] Unknown [employer] [id number] Unknown [id number] Social History Date Type Detail Facility Unknown if ever smoked [facility] Other Sex Assigned At [facility] Tobacco smoking status No Smoking Status Entered [facility] Start: 05-02-2024 Tobacco smoking status NHIS Never smoked tobacco (finding) [facility] Start: 1975 Sex Assigned At Female [facility] NEGATED: Highlighted row [facility] Functional Status Date Assessment Result Facility 02-26-2024 Functional Status N/A [facility] Clinical Notes 08-19-2021 to 02-26-2024 Note Date & Type Note Facility 02-26-2024 Hospital Discharg e instructions Patient Education 02/26/2024 16:51:28 Acute Knee Pain, Adult, Xjin-ws-Piim Acute Knee Pain, Adult Many things can cause knee pain. Sometimes, knee pain is sudden (acute) and may be caused by damage, swelling, or irritation of the muscles and tissues that support your knee. The pain often goes away on its own with time and rest. If the pain does not go away, tests may be done to find out what is causing the pain. Follow these instructions at home: If you have a knee sleeve or brace: Wear the knee sleeve or brace as told by your doctor. Take it off only as told by your doctor. Loosen it if your toes: ?Tingle. ?Become numb. ?Turn cold and blue. Keep it clean. If the knee sleeve or brace is not waterproof: ?Do not let it get wet. ?Cover it with a watertight covering when you take a bath or shower. Activity Rest your knee. Do not do things that cause pain or make pain worse. Avoid activities where both feet leave the ground at the same time (high-impact activities). Examples are running, jumping rope, and doing jumping jacks. Work with a physical therapist to make a safe exercise program, as told by your doctor. Managing pain, stiffness, and swelling If told, put ice on the knee. To do this: ?If you have a removable knee sleeve or brace, take it off as told by your doctor. ?Put ice in a plastic bag. ?Place a towel between your skin and the bag. ?Leave the ice on for 20 minutes, 2 3 times a day. ?Take off the ice if your skin turns bright red. This is very important. If you cannot feel pain, heat, or cold, you have a greater risk of damage to the area. If told, use an elastic bandage to put pressure (compression) on your injured knee. Raise your knee above the level of your heart while you are sitting or lying down. Sleep with a pillow under your knee. General instructions Take fwfi-eyl-jcifpbw and prescription medicines only as told by your doctor. Do not smoke or use any products that contain nicotine or tobacco. If you need help quitting, ask your doctor. If you are overweight, work with your doctor and a food expert (dietitian) to set goals to lose weight. Being overweight can make your knee hurt more. Watch for any changes in your symptoms. Keep all follow-up visits. Contact a doctor if: The knee pain does not stop. The knee pain changes or gets worse. You have a fever along with knee pain. Your knee is red or feels warm when you touch it. Your knee gives out or locks up. Get help right away if: Your knee swells, and the swelling gets worse. You cannot move your knee. You have very bad knee pain that does not get better with pain medicine. Summary Many things can cause knee pain. The pain often goes away on its own with time and rest. Your doctor may do tests to find out the cause of the pain. Watch for any changes in your symptoms. Relieve your pain with rest, medicines, light activity, and use of ice. Get help right away if you cannot move your knee or your knee pain is very bad. This information is not intended to replace advice given to you by your health care provider. Make sure you discuss any questions you have with your health care provider. Document Revised: 02/20/2021 Document Reviewed: 02/20/2021 [employer] Patient Education 2022 [employer] Follow Up Care 02/26/2024 15:55:58 With:Jeremy Benitez DO, ORT Address: [address] [place] [id number] When:02/29/2024 [facility] 02-26-2024 Evaluation + Plan note Extrac kay from: Title:ED Note Author:Halle HERNANDEZ, Divine Block ate:02/26/24 1. Knee pain, left (M25.562: Pain in left knee) Ordered: tramadol, 1-2 tabs, Oral, q6hr, PRN for pain, # 12 tab(s), Refills(s) 0, Pharmacy: [facility]/pharmacy #[id number], 175.3, cm, 02/26/24 16:01:00 EDT, Height/Length Dosing, 163, kg, 02/26/24 16:01:00 EDT, Weight Dosing 2. Elevated BP without diagnosis of hypertension (R03.0: Elevated blood-pressure reading, without diagnosis of hypertension) Orders: acetaminophen-oxycodone, 1 tab(s), Tab, Oral, Once, Stop date 02/26/24 16:28:00 EDT, STAT, Start date 02/26/24 16:28:00 EDT ibuprofen, 600 mg = 1 tab(s), Tab, Oral, Once, Stop date 02/26/24 16:28:00 EDT, STAT, Start date 02/26/24 16:28:00 EDT, 02/26/24 16:28:00 EDT Crutches Immobize Extremity [facility]02-12-2024 Evaluation note* Encounter Date Diagnosis Assessment Notes Treatment Notes Treatment Clinical Notes Oct, Acute bilateral low back pain without sciatica (ICD-10 - M54.50) Patient to call if no improvement seen. Oct, Essential (primary) hypertension (ICD-10 - I10) Oct, Mild intermittent asthma without complication (ICD-10 - J45.20) Oct, Anxiety (ICD-10 - F41.9) Pt to consider increase to 10mg - she can call at anytime for increase. [facility] Other 10-17-2023 Evaluation note* Encounter Date Diagnosis Assessment Notes Treatment Notes Treatment Clinical Notes Jun, Acute upper respiratory infection (ICD-10 - J06.9) eRX sent. Pt to call with results - allergy/asthma? Jun, Other Patient's blood pressure is quite high today, but she states she took some Mucinex DM. I warned her on doing this as this will certainly increase her blood pressure. Patient states she is feeling completely fine without any other symptoms than her symptoms of the upper respiratory infection. I did relay to her that she really should stay away from these type of medications. [facility] Other 07-11-2022 Evaluation note* Encounter Date Diagnosis Assessment Notes Treatment Notes Treatment Clinical Notes Mar, Acute upper respiratory infection (ICD-10 - J06.9) [facility] Other 06-29-2022 Evaluation note* Encounter Date Diagnosis Assessment Notes Treatment Notes Treatment Clinical Notes Feb, Left elbow pain (ICD-10 - M25.522) Feb, Lateral epicondylitis of left elbow (ICD-10 - M77.12) Today we have discussed lateral epicondylitis(tenn is elbow). We have discussed that this is an overuse injury leading to tendinosis and inflammation at the lateral epicondyle and common extensor origin. We have reviewed the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
[2025-01-02 18:26] VITALS: BP 268/119; PULSE 80; TEMP 37; O2SAT 97; BMI 44.3
[2025-01-02 18:30] VITALS: BP 260/140
--- NOTE | 2025-01-02 18:45 | ECG_ITS ---
[facility] Test Date: 2025-01-02 Pat Name: CHARLIE ESCAMILLA Department: Room: - Gender: Female Snow Removal/Plowing: : 1975 Requested By: [id number] Order Number: [id number] Reading MD: SHRAVAN ROBB M.D. Measurements Intervals [place] Rate: 78 P: 20 PA: 158 QRS: -18 QRSD: 94 T: 60 QT: 396 QTc: 430 Interpretive Statements 1100 Sinus rhythm 3114 Cannot rule out anterior myocardial infarction, age undetermined 5233 Voltage criteria for LVH 9150 abnormal ECG Compared to ECG 12/01/2019 21:08:03 Myocardial infarct finding now present Left ventricular hypertrophy now present Electronically Signed On 01-03-2025 19:28:47 EDT by SHRAVAN ROBB M.D.
[2025-01-02 18:57] VITALS: PULSE 72
--- NOTE | 2025-01-02 19:27 | ED_ITS ---
HPI - Dental/Oral General Chief complaint: Dental/Oral Stated complaint: Dental Pain Time Seen by Provider: 01/02/25 19:12 Source: patient Mode of arrival: walk-in History of Present Illness HPI Narrative: presents with dental abscess left frontal upper molar for 4 days. presents due to increasing pain. no fever or headache. History of HTN but non compliant with her BP medication. No lisinopril in 4 days but took dose before coming to the ER. Denies chest pain or dyspnea Related Data Home Medications ?Medication ?Instructions ?Recorded ?Confirmed lisinopril 20 1 tab PO DAILY 10/26/23 10/26/23 mg-hydrochlorothiazide 25 mg tablet Previous Rx's ?Medication ?Instructions ?Recorded methocarbamol 750 mg tablet 750 mg PO TID PRN pain #20 tabs 10/26/23 naproxen sodium 550 mg tablet 550 mg PO BID PRN pain #10 tabs 10/26/23 Allergies Allergy/AdvReac Type Severity Reaction Status Date / Time Penicillins Allergy Severe Verified 10/26/23 12:59 Review of Systems ROS Status of ROS 10 or more systems reviewed and unremark able except as noted in history and below [facility] Social History Smoking status: Never smoker Little interest or pleasure in doing things: not at all Feeling down, depressed, or hopeless: not at all Exam Constitutional Vital Signs, click to edit/add: Last Vital Signs Temp 98.6 F 01/02/25 18:26 Pulse 80 01/02/25 18:26 Resp 18 01/02/25 18:26 BP 190/120 H 01/02/25 20:50 Pulse Ox 97 01/02/25 18:26 O2 Del Method Room Air 01/02/25 18:26 Common normals: no apparent distress, oriented x3, no limitations, healthy appearing, alert and well nourished [facility] Other: dental caries left frontal upper molar. mild associated swelling Eye Common normals: EOMs intact bilaterally and conjunctivae normal Respiratory Common normals: normal respiratory effort, no retractions and no use of accessory muscles Cardio Common normals: regular rate, regular rhythm, S1 normal heart sound and S2 normal heart sound Extremity Common normals: normal to inspection and full ROM Neuro Common normals: oriented x3, CN's II-XII intact bilaterally, moves all extremities and no focal motor deficits Psych Appearance: grossly normal Course Vital Signs Vital signs: Vital Signs Temperature 98.6 F 01/02/25 18:26 Pulse Rate 80 01/02/25 18:26 Respiratory Rate 18 01/02/25 18:26 Blood Pressure 268/119 H 01/02/25 18:26 Pulse Oximetry 97 01/02/25 18:26 Oxygen Delivery Method Room Air 01/02/25 18:26 Temperature 98.6 F 01/02/25 18:26 Pulse Rate 80 01/02/25 18:26 Respiratory Rate 18 01/02/25 18:26 Blood Pressure 190/120 H 01/02/25 20:50 Pulse Oximetry 97 01/02/25 18:26 Oxygen Delivery Method Room Air 01/02/25 18:26 MDM - Dental/Oral MDM Narrative Medical decision making narrative: patient presents with dental abscess. Also hypertensive and non compliant with her hypertensive medications. Only complaint is dental pain. No headache, chest pain or dyspnea. She was advised of the plan to check labs for cardiac , renal and CBC due to her elevated blood pressure but she refused this workup and only wanted something for her tooth. agreeable to take medication for her BP. Given catapres and her BP decreased from 260 systolic to 190. she is advised to have her BP rechecked tomorrow by her PCP. Prescribed clindamycin for her tooth and is to follow up with her dentist Discharge Plan Discharge Chief Complaint: Dental/Oral Clinical Impression: Dental abscess, Hypertension Patient Disposition: Home, Self-Care Prescriptions / Home Meds: No Action lisinopril-hydrochlorothiazide 20-25 mg tablet 1 tab PO DAILY methocarbamol 750 mg tablet 750 mg PO TID PRN (Reason: pain) Qty: 20 0RF naproxen sodium 550 mg tablet 550 mg PO BID PRN (Reason: pain) Qty: 10 0RF Print Language: [place] Instructions: Dental Abscess (ED), Hypertension (ED) Additional Instructions: have blood pressure rechecked tomorrow Referrals: DOREEN PURCELL [Primary Care Provider] - 1 week
[2025-01-02] MEDS: CLINDAMYCIN PHOSPHATE/D5W 900 MG/50 ML PREMIX 100 MG IV (19:39)
[2025-01-02 19:47] VITALS: BP 220/110
[2025-01-02] MEDS: CLONIDINE HCL 0.2 MG TABLET PO (19:47)
[2025-01-02 20:19] VITALS: BP 220/120
[2025-01-02 20:50] VITALS: BP 190/120
--- NOTE | 2025-01-02 21:12 | PC.NURSE ---
patient coming for left sided dental pain. hx of infection. patient manual blood pressure 260/140. physician notified. patient states she has not taken her lisinopril in 3 days. states she forgets. she called her doctors nurse today but had to leave a message. pateint states she will call again in the morning. took 20mg lisinopril before leaving the house
== END 2025-01-02 21:14 | disposition home or self-care (01) ==
PROVIDERS: Emergency Provider Internal Medicine; PCP Family Medicine
DX: K04.7 Periapical abscess without sinus (principal); I10 Essential (primary) hypertension; T46.4X6A Underdosing of angiotensin-converting-enzyme inhibitors, initial encounter; Z91.148 Patient's other noncompliance with medication regimen for other reason
CPT/HCPCS: 93005; 96365; 99284; J0736